=== PATIENT | female | born 1995 | race Caucasian/White ===

== ENCOUNTER 2019-06-07 15:33 | Emergency (ER) | payer OTHER, SELFPAY ==
[2019-06-07 15:57] VITALS: BP 113/72; PULSE 78; RESP 15; TEMP 36.9; O2SAT 98; BMI 34.7
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
[2019-06-07] MEDS: KETOROLAC 60 MG/2 ML VIAL IM (18:07)
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
== END 2019-06-07 18:55 | disposition home or self-care (01) ==
PROVIDERS: Emergency Provider Nurse Practitioner Family
DX: M62.830 Muscle spasm of back (principal); S30.1XXA Contusion of abdominal wall, initial encounter; M54.6 Pain in thoracic spine; V89.2XXA Person injured in unspecified motor-vehicle accident, traffic, initial encounter
CPT/HCPCS: 81025; 96372; 99282; J1885

== ENCOUNTER 2019-10-16 11:05 | Emergency (ER) | payer OTHER, SELFPAY ==
[2019-10-16 11:09] VITALS: BP 113/72; PULSE 80; RESP 14; TEMP 37.1; O2SAT 99
--- NOTE | 2019-10-16 11:29 | DI.RAD.S_ITS ---
PROCEDURE: XR SHOULDER RT MIN 2V INDICATIONS: atraumatic right shoulder pain. TECHNIQUE: 3 views of the shoulder were acquired. COMPARISON: None. FINDINGS: Bones: No fractures or dislocations. No suspicious bony lesions. Visualized ribs appear intact. Soft tissues: No suspicious soft tissue calcifications. No calcific tendinitis. IMPRESSION: No significant osseous abnormality. Dictated by: Gilberto Galo M.D. on 10/16/2019 at 12:04 Approved by: Gilberto Galo M.D. on 10/16/2019 at 12:05
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
[2019-10-16] MEDS: KETOROLAC 60 MG/2 ML VIAL IM (12:56)
[2019-10-16 13:23] VITALS: BP 116/72; PULSE 74; RESP 16; TEMP 36.9; O2SAT 100
== END 2019-10-16 13:23 | disposition home or self-care (01) ==
PROVIDERS: Emergency Provider Nurse Practitioner Family
DX: M25.511 Pain in right shoulder (principal)
CPT/HCPCS: 73030; 81025; 96372; 99281; 99284; J1885